=== PATIENT | male | born 1970 | race Caucasian/White ===

== ENCOUNTER 2023-11-20 06:57 | Day surgery (SDC) | payer OTHER ==
[~2023-11-20 06:57] MED LIST: Bupivacaine 0.5%/EPINEPHrine 1:200,000 50 ML MDV ONE
[2023-11-20] MEDS ORDERED: Midazolam 1 MG/ML 2 ML SDV ONE (07:18)
[2023-11-20] MEDS ORDERED: fentaNYL 100 MCG/2 ML SDV ONE ×2 (07:18→09:05)
[2023-11-20] MEDS ORDERED: Propofol 200 MG/20 ML SDV ONE ×3 (07:18→09:13)
[2023-11-20] MEDS ORDERED: Sodium Chloride 0.9% 1,000 ML IV SCH (07:30)
[2023-11-20] MEDS ORDERED: ceFAZolin 2 GM in Premix Bag 1 BAG IV ONE (08:00)
[2023-11-20] MEDS ORDERED: Lidocaine 1% with EPINEPHrine 1:100,000 50 ML MDV ONE (08:13)
[2023-11-20] MEDS ORDERED: Lidocaine 1% 50 ML MDV ONE (08:14)
[2023-11-20] MEDS ORDERED: Ketorolac 30 MG/ML SDV ONE (08:45)
[2023-11-20] MEDS ORDERED: Ropivacaine 50 ML, dexAMETHasone 8 MG, EPINEPHrine 0.4 MG, Sodium Chloride 0.9% 27.6 ML NERVRT SCH ×4 (09:00)
== END 2023-11-20 10:47 | disposition home or self-care (01) ==
LOC: JP.SDS 06:57
PROVIDERS: ATTEND Surgery
DX: K42.9 Umbilical hernia without obstruction or gangrene (principal); I10 Essential (primary) hypertension
CPT/HCPCS: 49591; 93005; J0171; J0690; J1100; J1885; J2001; J2250; J2704; J2795; J3010; J3490; J7030

== ENCOUNTER 2024-10-20 06:25 | Day surgery (SDC) | payer OTHER ==
[2024-10-20] MEDS: Lactated Ringers 1,000 ML IV SCH (06:56)
[2024-10-20] MEDS ORDERED: Midazolam 1 MG/ML 2 ML SDV ONE (07:15)
[2024-10-20] MEDS ORDERED: fentaNYL 100 MCG/2 ML SDV ONE (07:15)
[2024-10-20] MEDS ORDERED: Propofol 200 MG/20 ML SDV ONE (07:15)
== END 2024-10-20 09:12 | disposition home or self-care (01) ==
LOC: JP.SDS 06:25
PROVIDERS: ATTEND Surgery
DX: Z12.11 Encounter for screening for malignant neoplasm of colon (principal); D12.5 Benign neoplasm of sigmoid colon; I10 Essential (primary) hypertension; K21.9 Gastro-esophageal reflux disease without esophagitis
CPT/HCPCS: 00811-QZ; 88305; J2250; J2704; J3010; J7120